=== PATIENT | male | born 1930 | race Caucasian/White ===

== ENCOUNTER 2017-04-09 12:37 | Emergency (ER) | payer MEDICARE, BC ==
[2017-04-09 13:28] LABS: Hematocrit 28.7 % (42.0-52.0); Mean Platelet Volume 11.4 fL (7.4-10.4)
[2017-04-09 13:47] LABS: ALT (SGPT) Less than 7 U/L (8-55); AST (SGOT) 13 U/L (5-34); Alkaline Phosphatase 47 U/L (40-150); Anion Gap 11 mmol/L (10-20); BUN (Urea Nitrogen) 32 mg/dL (8.4-25.7); Bilirubin, Total 0.4 mg/dL (0.2-1.2); CK (CPK) 45 U/L (30-200); Calc. Creatinine Clearance 0 mL/min (70-130); Calcium 9.2 mg/dL (7.8-10.44); Carbon Dioxide 26 mmol/L (23-31); Chloride 104 mmol/L (98-107); Estimated GFR-MDRD 46; Globulin 3.7 g/dL (2.4-3.5); Protein, Total 7.4 g/dL (5.8-8.1)
[2017-04-09 13:50] LABS: PTT 37.2 SEC (22.9-36.1); Prothrombin Time 15.2 SEC (12.0-14.7); Troponin I Less than 0.010 ng/mL (< 0.028)
[2017-04-09 13:59] LABS: Acanthocytes SLIGHT = 1-5 cells (100X) (None Seen); Anisocytosis SLIGHT = 6-15 cells (100X) (0-5/hpf); Hypochromia SLIGHT = 6-15 cells (100X) (0-5/hpf); Neutrophil 67 % (42-75); Reactive Lymphocytes 2 % (0-10)
--- NOTE | 2017-04-09 14:10 | RAD ---
UPRIGHT PORTABLE CHEST ONE VIEW: History: 87-year-old male with chest pain. Comparison: 12-12-16 FINDINGS: Monitor leads overlie the chest. Atherosclerosis of the aorta with some ectasia. Mild increased line ar interstitial markings consistent with some stable chronic lung change. Old lower lumbar spine arturo tebral body collapse. IMPRESSION: Stable chronic changes. Atherosclerosis of the aorta with ectasia. No confluent pneumonia, overt ramirez ma, pleural effusion or other acute process. POS: [facility]
[2017-04-09 17:13] LABS: Bilirubin Negative (Negative); Blood, Urine Negative (Negative); Glucose, Urine (Dipstick) Negative (Negative); Ketone, Urine Negative (Negative); Nitrite Negative (Negative); Protein, Urine (Dipstick) 30 mg/dL (Neg-Trace); Urobilinogen 0.2 mg/dL (0.2-1.0)
[2017-04-09 17:15] LABS: RBC/HPF 0-3 HPF (0-3); Squamous Epithelial 0-3 HPF (0-3); WBC/HPF 0-3 HPF (0-3)
[2017-04-09 17:22] LABS: Bacteria/HPF 1+ HPF (None Seen); Hyaline Casts/LPF 4-6 HYALINE CAST LPF (0-3 Hyaline); Renal Epithelial None Seen HPF (0-3); Transitional Epithelial NONE SEEN HPF (0-3)
== END 2017-04-09 17:52 | disposition home or self-care (01) ==
LOC: ERS 12:37
DX: I48.91 Unspecified atrial fibrillation (principal); D72.829 Elevated white blood cell count, unspecified; G20 Parkinson's disease
CPT/HCPCS: 36415; 71010; 80053; 81003; 81015; 82550; 82553; 83605; 83880; 84484; 85025; 85610; 85730; 87086; 93005; 94760; J7050

== ENCOUNTER 2017-07-27 10:52 | Emergency (ER) | payer MEDICARE, BC ==
[2017-07-27 11:47] LABS: Hemoglobin 8.2 g/dL (14.0-18.0); Mean Corpuscular HGB CONC 30.7 g/dL (32.0-36.0); Mean Corpuscular Hemoglobin 25.5 pg (27.0-31.0); Mean Corpuscular Volume 83.1 fl (80.0-94.0); Mean Platelet Volume 13.3 fL (7.4-10.4); Platelet Count 63 thou/uL (130-400); White Blood Cell (WBC) Count 9.4 thou/uL (4.8-10.8)
--- NOTE | 2017-07-27 11:50 | RAD ---
PORTABLE CHEST: Date: 07/27/17 HISTORY: Heart palpitations. COMPARISON: 04/09/17. FINDINGS: Heart size is borderline. There are atherosclerotic changes of the aorta. Chronic lung changes are se en without focal infiltrates. IMPRESSION: Chronic lung change. Stable chest. POS: [facility]
[2017-07-27 11:58] LABS: ALT (SGPT) Less than 7 U/L (8-55); AST (SGOT) 14 U/L (5-34); Albumin 3.8 g/dL (3.4-4.8); Alkaline Phosphatase 53 U/L (40-150); Anion Gap 11 mmol/L (10-20); BUN (Urea Nitrogen) 18 mg/dL (8.4-25.7); Bilirubin, Total 0.5 mg/dL (0.2-1.2); CK (CPK) 58 U/L (30-200); Calc. Creatinine Clearance 0 mL/min (70-130); Carbon Dioxide 25 mmol/L (23-31); Chloride 104 mmol/L (98-107); Estimated GFR-MDRD 48; Globulin 3.6 g/dL (2.4-3.5); Glucose 141 mg/dL (83-110); Potassium 4.1 mmol/L (3.5-5.1); Protein, Total 7.4 g/dL (5.8-8.1); Sodium 136 mmol/L (136-145)
[2017-07-27 12:03] LABS: CKMB 1.4 ng/mL (0-6.6); Troponin I 0.011 ng/mL (< 0.028)
[2017-07-27 12:14] LABS: Acanthocytes SLIGHT = 1-5 cells (100X) (None Seen); Anisocytosis SLIGHT = 6-15 cells (100X) (0-5/hpf); Hypochromia SLIGHT = 6-15 cells (100X) (0-5/hpf); Lymphocytes 12 % (21-51); MDiff Complete? YES; Monocytes 4 % (0-10); Neutrophil 84 % (42-75); PLT Morphology Comment Appears Decreased
--- NOTE | 2017-08-22 19:55 | EKG ---
Test Reason : Blood Pressure : / mmHG Vent. Rate : 122 BPM Atrial Rate : 113 BPM P-R Int : 000 ms QRS Dur : 088 ms QT Int : 330 ms P-R-T Axes : 000 -26 060 degrees QTc Int : 470 ms Atrial fibrillation with rapid ventricular response Nonspecific ST abnormality Abnormal ECG Confirmed by CALLY PRAJAPATI ([id number]), editor magazine ELAIAN MONTES ([id number]) on 08/22/2017 7:54:45 PM Referred By: Confirmed By:CALLY PRAJAPATI
--- NOTE | 2017-08-22 19:55 | EKG ---
Test Reason : REPEAT EKG Blood Pressure : / mmHG Vent. Rate : 088 BPM Atrial Rate : 088 BPM P-R Int : 174 ms QRS Dur : 094 ms QT Int : 368 ms P-R-T Axes : 058 -22 012 degrees QTc Int : 445 ms Normal sinus rhythm Incomplete right bundle branch block Nonspecific ST abnormality Abnormal ECG Confirmed by CALLY PRAJAPATI ([id number]), manager editorial ELAINA MONTES ([id number]) on 08/22/2017 7:54:45 PM Referred By: MD EASTON Confirmed By:CALLY PRAJAPATI
== END 2017-07-27 12:47 | disposition home or self-care (01) ==
LOC: ERS 10:52
DX: I48.0 Paroxysmal atrial fibrillation (principal); G20 Parkinson's disease; Z79.899 Other long term (current) drug therapy
CPT/HCPCS: 71045; 80053; 82553; 83880; 84484; 85025; 93005

== ENCOUNTER 2017-08-14 07:07 | Emergency (ER) | payer MEDICARE, BC ==
[2017-08-14] MEDS ORDERED: Oxymetazoline HCl 0.05% ( 15 ML ) ONE (07:16)
[2017-08-14 07:40] LABS: Hemoglobin 7.7 g/dL (14.0-18.0); Mean Corpuscular HGB CONC 30.6 g/dL (32.0-36.0); Mean Corpuscular Hemoglobin 25.1 pg (27.0-31.0); Mean Corpuscular Volume 81.9 fl (80.0-94.0); Mean Platelet Volume 10.3 fL (7.4-10.4); Platelet Count 63 thou/uL (130-400); RBC Distribution Width 16.3 % (11.5-14.5); Red Blood Cell (RBC) Count 3.08 mill/uL (4.70-6.10); White Blood Cell (WBC) Count 6.8 thou/uL (4.8-10.8)
[2017-08-14 07:43] LABS: INR-International Normal Ratio 1.2; PTT 37.1 SEC (22.9-36.1); Prothrombin Time 15.3 SEC (12.0-14.7)
[2017-08-14] MEDS ORDERED: Metoprolol Tartrate 5 MG/5 ML VIAL ONE (07:44)
[2017-08-14 08:01] LABS: Acanthocytes SLIGHT = 1-5 cells (100X) (None Seen); Band 4 % (5-11); Burr Cells SLIGHT = 2-5 cells (100X) (0-1/hpf); Eosinophils 2 % (0-10); Hypochromia SLIGHT = 6-15 cells (100X) (0-5/hpf); Lymphocytes 15 % (21-51); MDiff Complete? YES; Metamyelocyte 2 % (0-0); Monocytes 15 % (0-10); Neutrophil 62 % (42-75); PLT Morphology Comment Appears Decreased; Polychromasia SLIGHT = 2-3 cells (100X) (0-2/hpf); Schistocytes SLIGHT = 2-5 cells (100X) (0-1/hpf)
[2017-08-14] MEDS ORDERED: Bacitracin Zinc 1 Packet ONE (08:11)
== END 2017-08-14 10:55 | disposition home or self-care (01) ==
LOC: ERS 07:07
DX: R04.0 Epistaxis (principal); G20 Parkinson's disease; I48.91 Unspecified atrial fibrillation; Z79.82 Long term (current) use of aspirin; Z79.899 Other long term (current) drug therapy
CPT/HCPCS: 30903; 36415; 85025; 85610; 85730; 96374

== ENCOUNTER 2018-07-08 13:48 | Outpatient (CLI) | payer MEDICARE, BC ==
--- NOTE | 2018-07-08 15:05 | ULT ---
RENAL ULTRASOUND: HISTORY: Microhematuria. FINDINGS: Real-time imaging of the right and left kidneys was performed. The right kidney measures 12.3 and th e left 11.3 cm in size. There are no signs of cyst, mass, or obstruction. The bladder has a very irregular trabeculated appearance. The prostate appears enlarged. IMPRESSION: 1. Normal-size kidneys without evidence of obstruction or mass. 2. Very abnormal appearance to the bladder which was very trabeculated and the prostate is markedly enlarged. POS: [facility]
== END 2018-07-08 13:49 | disposition home or self-care (01) ==
LOC: BICULT 13:48
PROVIDERS: ATTEND Urology
DX: R31.29 Other microscopic hematuria (principal); N32.89 Other specified disorders of bladder; N40.0 Benign prostatic hyperplasia without lower urinary tract symptoms
CPT/HCPCS: 76770

== ENCOUNTER 2018-08-16 09:11 | Emergency (ER) | payer MEDICARE, BC ==
--- NOTE | 2018-08-16 10:05 | RAD ---
CHEST ONE VIEW: HISTORY: Chest pain. COMPARISON: Radiograph from 07/27/2017. FINDINGS: The lungs are clear. No pneumothorax or effusion. The cardiac silhouette and mediastinal contours a re similar. Moderate calcifications of the transverse aorta. IMPRESSION: No acute intrathoracic abnormality. POS: [facility]
[2018-08-16 10:09] LABS: ALT (SGPT) 11 U/L (8-55); AST (SGOT) 17 U/L (5-34); Alkaline Phosphatase 43 U/L (40-150); Anion Gap 15 mmol/L (10-20); BUN (Urea Nitrogen) 26 mg/dL (8.4-25.7); Bilirubin, Total 0.9 mg/dL (0.2-1.2); Calc. Creatinine Clearance 0 mL/min (70-130); Calcium 8.9 mg/dL (7.8-10.44); Carbon Dioxide 23 mmol/L (23-31); Chloride 104 mmol/L (98-107); Estimated GFR-MDRD 54; Globulin 3.1 g/dL (2.4-3.5); Glucose 119 mg/dL (83-110); Potassium 4.5 mmol/L (3.5-5.1); Protein, Total 7.1 g/dL (5.8-8.1); Sodium 137 mmol/L (136-145)
[2018-08-16 10:23] LABS: Hemoglobin 11.5 g/dL (14.0-18.0); Lymphocytes 13 % (21-51); MDiff Complete? YES; Mean Corpuscular HGB CONC 33.3 g/dL (32.0-36.0); Mean Corpuscular Volume 96.2 fL (78.0-98.0); Mean Platelet Volume 14.3 fL (7.4-10.4); Monocytes 16 % (0-10); Neutrophil 71 % (42-75); Platelet Count 42 thou/uL (130-400); Platelet Morphology Comment Appears Decreased; Polychromasia SLIGHT = 2-3 cells (100X) (0-2/hpf); RBC Distribution Width 15.6 % (11.5-14.5); White Blood Cell (WBC) Count 8.6 thou/uL (4.8-10.8)
== END 2018-08-16 13:18 ==
LOC: ERS 09:11
DX: R00.2 Palpitations (principal); G20 Parkinson's disease; I48.91 Unspecified atrial fibrillation; Z79.899 Other long term (current) drug therapy; Z79.891 Long term (current) use of opiate analgesic
CPT/HCPCS: 36415; 71045; 80053; 84484; 85025; 93005

== ENCOUNTER 2018-09-28 21:02 | Emergency (ER) | payer MEDICARE, BC | END 2018-09-28 22:36 | disposition home or self-care (01) | LOC: ERS 21:02 | DX: S81.001A Unspecified open wound, right knee, initial encounter (principal); I48.91 Unspecified atrial fibrillation; G20 Parkinson's disease; Z79.899 Other long term (current) drug therapy; Z79.891 Long term (current) use of opiate analgesic; W17.89XA Other fall from one level to another, initial encounter | CPT/HCPCS: 99283 ==

== ENCOUNTER 2018-11-03 10:46 | Inpatient (IN) | payer MEDICARE, BC ==
--- NOTE | 2018-11-03 11:58 | RAD ---
LEFT KNEE 4 VIEWS: HISTORY: Injury, fall. Left knee pain FINDINGS: Degenerative changes are present. No acute fracture or dislocation is identified. No joint effusion i s seen. Vascular calcifications are noted.
--- NOTE | 2018-11-03 12:03 | CT ---
CT BRAIN WITHOUT CONTRAST: HISTORY:Fall. Headache. No loss of consciousness COMPARISON:01/21/2014 FINDINGS: There are foci of decreased attenuation in the periventricular white matter, consistent with chronic small vessel ischemic disease. There are old lacunar infarcts in the cerebellum. No evidence of acute infarct, hemorrhage, midline shift or abnormal extra-axial fluid collections is seen. The ventricular size is appropriate and the basilar cisterns are patent. The bony calvarium is intact. The mastoid air cells are well aerated. There is mucosal disease in the paranasal sinuses. IMPRESSION: No CT evidence of acute intracranial process.
--- NOTE | 2018-11-03 12:11 | CT ---
CT CERVICAL SPINE WITH CORONAL AND SAGITTAL REFORMATIONS AND NO IV CONTRAST: HISTORY: Fall, neck pain FINDINGS: Multilevel degenerative changes are present. There is minimal anterolisthesis of C2 over C3 and C3 ov er C4 vertebral bodies. No fracture, subluxation or facet malalignment is identified. No prevertebral soft tissue swelling is apparent. The visualized lung apices demonstrate scarring. IMPRESSION: No CT evidence for fracture or traumatic subluxation.
[2018-11-03] MEDS ORDERED: Adacel (T-DAP) 0.5 ML SYRINGE ONE (12:24)
--- NOTE | 2018-11-03 12:27 | RAD ---
EXAM: XR Ribs Rt>= 2 View W/PA CXR PROVIDED CLINICAL HISTORY: Witnessed mechanical fall this morning. Patient now complains of right-sided rib pain. COMPARISON: 08/16/2018. FINDINGS: There are remote fractures involving the lateral and anterolateral right eighth through 10th ribs. Fr acture of the right 10th rib was seen on the prior study on 08/16/2018. However,, there are additional acute fractures involving the anterolateral right ninth and 10th ribs . There is suggestio n of subtle subtle nondisplaced fractures involving the posterolateral right seventh, and eighth, as well as ninth ribs. There is an irregular opacity seen extending from the right upper lung zone to the right lung base la terally. This is not seen on the oblique view of the right-sided ribs and is probably related to overlying skin fold. This does not appear to represent a pneumothorax, but follow-up PA chest x-ray i s suggested. Cardiac silhouette and pulmonary vasculature are within normal limits. There is minimal biapical pleural-parenchymal scarring seen. Vascular calcifications are seen in the thoracic aorta. Degenerative changes are noted in the spine with question of height loss involving the T12 vertebral body. However, this be better evaluated with lateral views of the lumbar spine. IMPRESSION: 1. Acute fractures involving the anterolateral right ninth and 10th ribs. 2. Probable subtle nondisplaced fractures of indeterminate age involving the lateral right seventh th rough ninth ribs. 3. Remote fractures involving the lateral right eighth through 10th ribs. 4. Irregular opacity in the right lung which is thought to most likely be related to overlying skin f old, but follow-up PA chest x-ray would be helpful to further evaluate this finding. 5. Question of height loss of the T12 vertebral body. However, this is not well evaluated on AP imagi ng and views of lumbar spine would be helpful for further evaluation.
--- NOTE | 2018-11-03 13:02 | RAD ---
AP pelvis one view HISTORY: Fall. Pelvic injury. FINDINGS: Sacral alae and pelvic rings are intact. Degenerative changes lower lumbar spine and hips. No displaced fractures are apparent. IMPRESSION: No significant abnormalities are demonstrated.
--- NOTE | 2018-11-03 13:06 | RAD ---
RIGHT KNEE FOUR VIEWS: HISTORY: Fall. Right knee pain. FINDINGS: Degenerative changes are seen. No acute fracture or dislocation is identified. There is soft tissue swelling in the prepatellar space. POS: [facility]
--- NOTE | 2018-11-03 13:50 | CT ---
CT CHEST WITHOUT CONTRAST: HISTORY: fall, right-sided chest pain, rib pain FINDINGS: Comparison is made with exam of 12/12/2016 There are multiple right-sided rib fractures involving the fifth through ninth ribs. An associated sm all right pleural effusion is present. Adjacent atelectatic changes noted. No pneumothoraces are seen. There are old compression fractures in the thoracic spine. Vascular calcification is present without evidence of an is no dilatation of the thoracic aorta. A tiny pericardial effusion is noted. No left-sided pleural effusion is seen. IMPRESSION: Multiple right-sided rib fractures with small right pleural effusion.
--- NOTE | 2018-11-03 14:19 | CT ---
EXAM: CT Thoracic Spine WO Con PROVIDED CLINICAL HISTORY: Back pain. Unwitnessed mechanical fall this morning. Right-sided rib pain. COMPARISON: CT lumbar spine on 08/01/[address] thorax on 12/12/2016. FINDINGS: The severe burst fracture of the T12 vertebral body is again seen. Burst fracture of the T11 vertebra l body is also again seen. Degree of height loss is unchanged compared to the coronal reformatted images on CT thorax in 2017, and the degree height loss anteriorly is greater than 75% involving thes e vertebral bodies with exaggerated kyphosis of the thoracic spine centered at these levels. There is moderate narrowing of the central spinal canal at the T11-12 level due to retropulsion of fracture fragments greatest involving the superior endplate of the T12 vertebral body. The degree of neural central canal narrowing is stable compared to study in 2014. No new compression fracture is seen involving the thoracic spine. Remainder of the thoracic spine dem onstrates no significant bony encroachment on the central spinal canal. There is moderate bilateral neural foraminal narrowing at the T9-T10 and T11-12 levels secondary to facet degenerative changes an d bony encroachment. No significant neural foraminal narrowing is seen at the remaining levels of the thoracic spine. There is no evidence of a subluxation. Prevertebral soft tissues have a normal appearance. There is a right pleural effusion which does demonstrate mild increased density, some of this is like ly related to artifact. However, findings are likely due to hemothorax given right-sided rib fractures seen on recent chest x-ray as well as CT of the thorax. Vascular calcifications are seen in the coronary arteries as well as involving the thoracic aorta. The left renal pelvis is prominent with suggestion of mild caliectasis/minimal hydronephrosis. This i s incompletely evaluated on this exam; however, a similar finding was seen on CT thorax in 2017. A calcified nodule is present in the right lobe of the thyroid also seen on study in 2017. Pleural and parenchymal scarring is seen in each lung apex with calcification on the right. IMPRESSION: 1. Burst fractures T11 and T12 vertebral bodies. Degree of height loss of these vertebral bodies is o verall similar to CT thorax on 12/12/2016 with greater than 75% loss of height anteriorly and resultant exaggerated kyphosis of the thoracolumbar spine at this level. There is moderate narrowing of the central spinal canal due to retropulsion of fracture fragments into the central canal. 2. Right pleural effusion with increased density suggesting hemothorax.
[2018-11-03] MEDS ORDERED: HYDROcodone/Acetaminophen 5/325 mg Tablet ONE (15:34)
[2018-11-03 16:35] LABS: Bilirubin Negative (Negative); Blood, Urine Large (Negative); Clarity CLOUDY (Clear); Glucose, Urine (Dipstick) Negative (Negative); Leukocyte Negative (Negative); Nitrite Negative (Negative); Protein, Urine (Dipstick) 30 mg/dL (Neg-Trace); Specific Gravity, Urine 1.013 (1.002-1.036)
[2018-11-03 16:38] LABS: Bacteria/HPF None Seen HPF (None Seen); Hyaline Casts/LPF 0-3 HYALINE CAST LPF (0-3 Hyaline); Pathc Cast-AUWi Flag 0.27 (0-2.49); RBC/HPF GREATER THAN 50-TNTC HPF (0-3); Squamous Epithelial 0-3 HPF (0-3); WBC/HPF 0-3 HPF (0-3)
--- NOTE | 2018-11-03 17:20 | RAD ---
3 views right foot. HISTORY: Fall with right foot pain. AP, lateral and oblique views right foot obtained. Vascular calcifications seen in the right foot. No evidence of acute fractures, subluxations or bony lesions seen. IMPRESSION: normal 3 views right foot.
[2018-11-03] MEDS ORDERED: Sodium Chloride 0.9% 1,000 ML IV SCH (17:44)
[2018-11-03] MEDS ORDERED: Ondansetron ODT 4 MG TAB SL PRN (17:44)
[2018-11-03] MEDS ORDERED: Ondansetron PF 4 MG/2 ML Vial IVP PRN (17:44)
[2018-11-03] MEDS ORDERED: Acetaminophen 325 MG TAB PO PRN (17:44)
[2018-11-03] MEDS ORDERED: HYDROcodone/Acetaminophen 5/325 mg Tablet PO PRN ×3 (17:44→22:17)
[2018-11-03 18:54] LABS: Hemoglobin 7.9 g/dL (14.0-18.0); Mean Corpuscular HGB CONC 34.3 g/dL (32.0-36.0); Mean Corpuscular Hemoglobin 33.1 pg (27.0-31.0); Mean Corpuscular Volume 96.5 fL (78.0-98.0); RBC Distribution Width 17.4 % (11.5-14.5); Red Blood Cell (RBC) Count 2.38 mill/uL (4.70-6.10); White Blood Cell (WBC) Count 10.8 thou/uL (4.8-10.8)
[2018-11-03 18:56] LABS: Albumin 3.4 g/dL (3.4-4.8)
[2018-11-03 18:57] LABS: Chloride 101 mmol/L (98-107); Potassium 4.3 mmol/L (3.5-5.1); Sodium 135 mmol/L (136-145)
[2018-11-03 18:58] LABS: Calcium 8.4 mg/dL (7.8-10.44); Glucose 121 mg/dL (83-110)
[2018-11-03 18:59] LABS: Globulin 2.5 g/dL (2.4-3.5); Protein, Total 5.9 g/dL (5.8-8.1)
[2018-11-03 19:00] LABS: Anion Gap 11 mmol/L (10-20); Bilirubin, Total 1.3 mg/dL (0.2-1.2); Carbon Dioxide 27 mmol/L (23-31)
[2018-11-03 19:01] LABS: Alkaline Phosphatase 53 U/L (40-150)
[2018-11-03 19:02] LABS: Calc. Creatinine Clearance 29 mL/min (70-130); Estimated GFR-MDRD 45
[2018-11-03 19:03] LABS: BUN (Urea Nitrogen) 24 mg/dL (8.4-25.7)
[2018-11-03 19:04] LABS: ALT (SGPT) Less than 7 U/L (8-55); AST (SGOT) 17 U/L (5-34)
[2018-11-03 19:11] LABS: Anisocytosis SLIGHT = 6-15 cells (100X) (0-5/hpf); Band 1 % (5-11); Basophilic Stippling SLIGHT = 1-2 cells (100X) (None Seen); Elliptocytes SLIGHT = 2-5 cells (100X) (0-1/hpf); Large Platelets SLIGHT; Lymphocytes 16 % (21-51); MDiff Complete? YES; Mean Platelet Volume 12.6 fL (7.4-10.4); Monocytes 17 % (0-10); Neutrophil 65 % (42-75); Nucleated RBC 1 % (0); Ovalocytes SLIGHT = 2-5 cells (100X) (0-1/hpf); Platelet Count 36 thou/uL (130-400); Platelet Morphology Comment Appears Decreased; Polychromasia MODERATE = 3-4 cells (100X) (0-2/hpf); Schistocytes SLIGHT = 2-5 cells (100X) (0-1/hpf)
[2018-11-03] MEDS ORDERED: Senokot S 8.6-50 MG TAB PO PRN (22:17)
[2018-11-03] MEDS ORDERED: Polyethylene Glycol 3350 17 GM Packet PO PRN (22:24)
[2018-11-03 23:11] LABS: Hemoglobin 7.7 g/dL (14.0-18.0)
[2018-11-03 23:17] LABS: INR-International Normal Ratio 1.3; Prothrombin Time 16.3 SEC (12.0-14.7)
[2018-11-03 23:18] LABS: PTT 38.4 SEC (22.9-36.1)
[2018-11-03] MEDS: Acetaminophen 325 MG TAB PO PRN (23:42)
--- NOTE | 2018-11-04 05:33 | HP ---
PRIMARY CARE PHYSICIAN: Dr. Ace. CHIEF COMPLAINT: Right rib pain. HISTORY OF PRESENT ILLNESS: Mr. Duenas is an 88-year-old male, who reported to the emergency room today for evaluation of right rib pain. The patient and family report the patient has had frequent falls in the last several days, has a history of Parkinson disease, also has a past medical history pertinent for urinary retention, anemia, atrial fibrillation, vertebral fracture. Reports that he fell earlier in the week in the bathroom. Daughter reports that he fell today and hit his ribs on a curb. He has multiple contusions, abrasions, and ecchymoses all over his body, right knee and right ankle with swelling and ecchymosis. Also, has tenderness to right anterior chest wall. Has some skin tears on the right arm and multiple contusions on the right side of his body. The patient had multiple CTs and x-rays. 1. Brain CT, which showed no CT evidence of any acute intracranial process. 2. The patient also had a cervical spinal CT, no CT evidence of fracture or traumatic subluxation. 3. The patient also had a thoracic spine CT, which shows burst fractures at T11 and T12 vertebral bodies, degree of height loss of these bodies are overall similar to the CT thorax of 12/12/2016 with greater than 75% loss of height. Moderate narrowing of the central spinal canal due to retropulsion of the fracture fragments into the central canal. Right pleural effusion with increased density suggesting a hemothorax. 4. The patient had a chest CT, which showed multiple right-sided rib fractures with small right pleural effusion. Tiny pericardial effusion is noted. 5. The patient had a right foot x-ray, which showed normal right foot views. 6. The patient also had a pelvis x-ray, which showed no significant abnormalities. 7. Chest x-ray with rib view shows acute fractures involving the anterior lateral right 9th and 10th ribs, probable subtle nondisplaced fractures of indeterminate-age over the right 7th through the 9th ribs. Remote fractures involving the lateral right 8th through the 10th. Irregular opacity in the right lung. 8. Bilateral knee x-rays were also performed, which showed no evidence of fracture. There is an effusion on the right knee. The patient was admitted to medical for pain control, PT/OT evaluation, possible rehab and/or home health with PT to help with frequent falls. Case management consultation will also be ordered. REVIEW OF SYSTEMS: The patient with pain with a deep breath to the right chest, tender to the touch to the right anterior chest wall, skin tears of right arm, multiple contusions, pain to right ankle. All other systems were reviewed and negative unless mentioned in the HPI. PAST MEDICAL HISTORY: Pertinent for urinary retention, iron-deficiency anemia, Parkinson's, atrial fibrillation, and vertebrae fracture. SURGICAL HISTORY: Aneurysm repair of right carotid artery. PSYCHIATRIC HISTORY: None. SOCIAL HISTORY: Lives in long-term care facility, [facility]. Drinks socially. No smoking history. KNOWN ALLERGIES: None. HOME MEDICATIONS: 1. Metoprolol 25 mg p.o. b.i.d. 2. Potassium chloride 10 mEq once a day. 3. Tylenol No.3 of 300 mg/30 mg one tablet t.i.d. p.r.n. 4. Ferrous sulfate 134 mg daily. 5. Finasteride 5 mg p.o. daily. 6. Citalopram 10 mg p.o. once daily. 7. Carbidopa-levodopa 25-250 t.i.d. 8. Amantadine 100 mg p.o. b.i.d. 9. Docusate 100 mg p.o. once a day at bedtime. 10. MiraLax 17 g p.o. p.r.n. 11. Myrbetriq 25 mg once a day. 12. Flomax 0.4 mg p.o. b.i.d. PHYSICAL EXAMINATION: VITAL SIGNS: Blood pressure 170/75, pulse is 64, respirations 18, pO2 sats 93% on room air, temperature is 98.7. CONSTITUTIONAL: The patient appears nontoxic, is currently comfortable, is alert and oriented to person, place, and time. HEENT: Head is atraumatic and normocephalic. Eyes; eyelids are normal to inspection. Extraocular muscles are intact. Pupils are equally round and reactive to light. ENT; mouth exam is normal. Mucous membranes are moist. NECK: Normal range of motion. Trachea is midline. RESPIRATORY/CHEST: Breath sounds are normal. There is tenderness to the right anterior chest. CARDIOVASCULAR: Heart rate regular rate and rhythm. Heart sounds are normal. ABDOMEN: Nontender. Bowel sounds are heard. BACK: Normal inspection, normal range of motion. Upper extremity, normal range of motion. Motor strength is normal. Radial pulses are normal. Lower extremity, normal range of motion. Motor strength is normal. Sensation is intact. Pedal pulses are normal. NEUROLOGIC: The patient is oriented to person, place, and time. SKIN: Warm and dry. Skin avulsions to right arm. Multiple areas of contusions to right side of body. Ecchymosis is noted right leg, right arm, and right side of chest. ASSESSMENT AND PLAN: 1. Right rib fractures: Pain medication, observation, OT/PT evaluation, Case Management for home health, rehab, PT/OT assistants as needed. 2. Anemia: The patient does have a history of hematuria. With a history of anemia, we will perform H and H q.6, we will monitor. The patient has multiple ecchymoses, bruising, contusions from recent falls. We have ordered a guaiac to make sure that the patient does not have any gastrointestinal source. We will keep a close eye on the hemoglobin. The patient is not on any blood thinners. 3. Parkinson's: We will continue home medications. 4. Hypertension: We will continue home medications. 5. Benign prostatic hyperplasia, urinary retention: We will continue home medications. 6. Case discussed with Dr. Pacheco, who agrees with plan. 7. Gastrointestinal prophylaxis has been started. Due to the multiple bruising, right leg bruising, ankle pain, and anemia, we will hold off any Lovenox. SCDs for now. Re-evaluate in the morning and start as appropriate. 8. Hospital course will be dependent on clinical findings. Job ID: [id number]
[2018-11-04 05:48] LABS: Platelet Count 18 thou/uL (130-400)
[2018-11-04 06:07] LABS: Hemoglobin 7.8 g/dL (14.0-18.0); Hypochromia SLIGHT = 6-15 cells (100X) (0-5/hpf); Lymphocytes 20 % (21-51); MDiff Complete? YES; Mean Corpuscular HGB CONC 34.5 g/dL (32.0-36.0); Mean Corpuscular Hemoglobin 33.1 pg (27.0-31.0); Mean Platelet Volume 13.2 fL (7.4-10.4); Monocytes 14 % (0-10); Neutrophil 66 % (42-75); Platelet Morphology Comment Appears Decreased; RBC Distribution Width 17.4 % (11.5-14.5); Red Blood Cell (RBC) Count 2.36 mill/uL (4.70-6.10); White Blood Cell (WBC) Count 9.6 thou/uL (4.8-10.8)
[2018-11-04 06:12] LABS: ALT (SGPT) 8 U/L (8-55); AST (SGOT) 14 U/L (5-34); Albumin 3.3 g/dL (3.4-4.8); Alkaline Phosphatase 51 U/L (40-150); Anion Gap 11 mmol/L (10-20); BUN (Urea Nitrogen) 19 mg/dL (8.4-25.7); Bilirubin, Total 1.5 mg/dL (0.2-1.2); Calc. Creatinine Clearance 36 mL/min (70-130); Calcium 8.4 mg/dL (7.8-10.44); Carbon Dioxide 24 mmol/L (23-31); Chloride 102 mmol/L (98-107); Estimated GFR-MDRD 57; Globulin 2.6 g/dL (2.4-3.5); Glucose 102 mg/dL (83-110); Protein, Total 5.9 g/dL (5.8-8.1); Sodium 133 mmol/L (136-145)
[2018-11-04] MEDS: Finasteride 5 MG TAB PO SCH (10:45)
[2018-11-04] MEDS: Amantadine HCl 100 mg Capsule PO SCH ×2 (10:45→20:31)
[2018-11-04] MEDS: Tamsulosin HCl 0.4 MG CAP PO SCH ×2 (10:46→20:30)
[2018-11-04] MEDS: Famotidine 20 MG TAB PO SCH (10:46)
[2018-11-04] MEDS: Metoprolol Tartrate 25 MG TAB PO SCH ×2 (10:46→20:30)
[2018-11-04] MEDS: Ferrous Sulfate 325 MG TAB PO SCH (10:46)
[2018-11-04] MEDS: Carbidopa/Levodopa 25-100 mg Tablet PO SCH ×3 (10:47→20:31)
[2018-11-04] MEDS: Citalopram 20 MG TAB PO SCH (10:47)
--- NOTE | 2018-11-04 13:08 | CT ---
CT BRAIN WITHOUT CONTRAST: HISTORY:Fall. Altered mental status, focal weakness right hand COMPARISON:01/21/2014, 11/03/2018 FINDINGS: There are foci of decreased attenuation in the periventricular white matter, consistent wit h chronic small vessel ischemic disease. There are old lacunar infarcts in the cerebellum. No evidence of acute infarct, hemorrhage, midline shift or abnormal extra-axial fluid collections is see n. The ventricular size is appropriate and the basilar cisterns are patent. The bony calvarium is intact. The mastoid air cells are well aerated. There is mucosal disease in the paranasal sinuses. IMPRESSION: No CT evidence of acute intracranial process.
[2018-11-04 13:15] LABS: Hemoglobin 7.9 g/dL (14.0-18.0); Mean Corpuscular HGB CONC 34.2 g/dL (32.0-36.0); Mean Corpuscular Volume 96.5 fL (78.0-98.0); Mean Platelet Volume 12.8 fL (7.4-10.4); Platelet Count 39 thou/uL (130-400); RBC Distribution Width 17.2 % (11.5-14.5); Red Blood Cell (RBC) Count 2.41 mill/uL (4.70-6.10)
[2018-11-04 13:30] LABS: Anisocytosis SLIGHT = 6-15 cells (100X) (0-5/hpf); Band 2 % (5-11); Elliptocytes SLIGHT = 2-5 cells (100X) (0-1/hpf); Eosinophils 2 % (0-10); Lymphocytes 8 % (21-51); MDiff Complete? YES; Monocytes 11 % (0-10); Neutrophil 77 % (42-75); Platelet Morphology Comment Appears Decreased
[2018-11-04] MEDS: HYDROcodone/Acetaminophen 5/325 mg Tablet PO PRN (14:39)
[2018-11-04] MEDS: ALPRAZolam 0.25 MG TAB PO PRN (15:50)
[2018-11-04] MEDS ORDERED: Sodium Chloride 0.9% 500 ML IV SCH (16:45)
--- NOTE | 2018-11-04 19:21 | PRG ---
DATE OF SERVICE: 11/04/2018 SUBJECTIVE: Mr. Duenas is a pleasant elderly gentleman with past medical history significant for myeloproliferative disorder and chronic thrombocytopenia, and end-stage Parkinson disease, who presented to the hospital after suffering from a fall. The patient has been admitted with multiple rib fractures and small hemothorax. This morning, the patient did have some intermittent weakness on his right side, along with some hallucinations involving some perceptions of trying to eat food that was not there and thinking he was in a standing position when he was actually lying down. He denies any pain. He is pleasant and conversative and has been oriented x3. He denies any nausea, vomiting, or shortness of breath. OBJECTIVE: VITAL SIGNS: Blood pressure 90/45, pulse 69, respirations 16, O2 saturation is 100%, temperature is 97.5. GENERAL: This is a very thin, generally ill-appearing male in bed, in no acute distress. HEENT: Head is atraumatic and normocephalic. CV: S1 and S2. Regular rate and rhythm. Systolic murmur grade 2/6. LUNGS: Regular respiratory rate and pattern, overall clear. Mildly decreased breath sounds at the bases. ABDOMEN: Soft. Positive bowel sounds. EXTREMITIES: No edema. MUSCULOSKELETAL: He does have abrasions down the right side of his arm, which are wrapped. LABORATORY DATA: White blood cell count 11, hemoglobin 7.9, hematocrit 23.2, platelet count is 39. Sodium 133, creatinine 1.21. Urinalysis was positive for blood. ASSESSMENT: 1. Status post fall with resulting rib fractures and pleural effusion, likely traumatic/hemothorax. 2. End-stage Parkinson disease with hallucinations and possible acute delirium. 3. Myeloproliferative disorder and chronic thrombocytopenia. 4. Hematuria, resolving. PLAN: Repeat CT scan was obtained, which showed no acute bleed at this time. A long conversation was had with his daughter, Sara, the patient is a DNAR, and they would like a palliative care consult at this time. The patient did become hypotensive late in the afternoon, a saline bolus was ordered, however, the patient's daughter refused repeat IV stick for the patient. It is likely after palliative care consult that they will choose comfort care and comfort measures at this time. Case Management has been consulted for placement at an inpatient rehab and this is ongoing. The patient has multiple comorbidities and given his thrombocytopenia and injury meets inpatient criteria at this time, the care of this patient was discussed with Dr. Barrientos in detail, who agrees with plan of care as stated above. Job ID: [id number]
[2018-11-04] MEDS: Acetaminophen 325 MG TAB PO PRN (19:31)
[2018-11-04] MEDS: Docusate 100 MG CAP PO SCH (20:30)
[2018-11-05] MEDS: ALPRAZolam 0.25 MG TAB PO PRN ×3 (06:00→19:59)
[2018-11-05] MEDS: Acetaminophen 325 MG TAB PO PRN ×3 (06:00→16:22)
[2018-11-05] MEDS: Carbidopa/Levodopa 25-100 mg Tablet PO SCH ×4 (09:54→19:58)
[2018-11-05] MEDS: Famotidine 20 MG TAB PO SCH (09:55)
[2018-11-05] MEDS: Citalopram 20 MG TAB PO SCH ×2 (09:55→10:38)
[2018-11-05] MEDS: Metoprolol Tartrate 25 MG TAB PO SCH ×2 (10:01→19:58)
[2018-11-05] MEDS: Finasteride 5 MG TAB PO SCH ×2 (10:02→10:39)
[2018-11-05] MEDS: Tamsulosin HCl 0.4 MG CAP PO SCH ×2 (10:02→19:59)
[2018-11-05] MEDS: Potassium Chloride 10 MEQ TAB PO SCH (10:03)
[2018-11-05] MEDS: Amantadine HCl 100 mg Capsule PO SCH ×3 (10:04→19:57)
[2018-11-05] MEDS: Ferrous Sulfate 325 MG TAB PO SCH (10:38)
--- NOTE | 2018-11-05 13:43 | PDOC.PALPN ---
Palliative Progress Note - Subjective Arrived to assess patient and follow up on consult request. Patient sleeping, nurse present stating that family had just left for lunch. Visit in conjunction with palliative care nurse Kermit Wilks RN. Patient with significant brusing/skin tears from recent fall. Not arousable other than moan. Patient Head of bed elevated and patient listing to left. Bronchial secretions audible at bedside. Staff nurse reports patient took medications in pudding today without difficulty. Family seeking palliation and comfort measures secondary to patient continued decline related to chronic health conditions. - Objective Vital Signs: Vital Signs - Most Recent Temp Pulse Resp BP Pulse Ox 98.0 F 72 12 118/64 98 11/05/18 11:55 11/05/18 10:40 11/05/18 10:40 11/05/18 10:40 11/05/18 10:40 - Physical Exam Deviation from normal: Patient not arousable other than moaning. Clavicular wasting Deviation from normal: Lungs clear upper lobes, diminished lower, bronchial secresions, Cardiovascular: RRR Deviation from normal: murmur Deviation from normal: unable to determine orientation Deviation from normal: Brusing significant, skin tears, pallor - Assessment (1) Oropharyngeal dysphagia Code(s): R13.12 - DYSPHAGIA, OROPHARYNGEAL PHASE Current Visit: No Status: Acute (2) Parkinson disease Code(s): G20 - PARKINSON'S DISEASE Current Visit: No Status: Chronic - Plan Plan:Palliative Care Team to follow up with family. Kermit Wilks to determine if speech therapy has been consulted for eval related to dysphagia. [20] minutes spent on this encounter with >50% of the time in counseling and coordination of care.
--- NOTE | 2018-11-05 13:49 | PDOC.PN ---
- Subjective Encounter Start Date: 11/05/18 Encounter Start Time: 11:15 Subjective: is resting now, had a rough night per son and daughter at bedside - Objective Resuscitation Status - Order Detail: 11/03/18 22:17 Resuscitation Status Routine Co-Sign Provider: Resuscitation Status: DNAR: NO Resuscitation Discussed with: patient Additional comments: daughter is surrogate decision maker MAR Reviewed: Yes Vital Signs & Weight: Vital Signs (12 hours) Temp Pulse Resp BP Pulse Ox 11/05/18 11:55 98.0 F 11/05/18 10:40 72 12 118/64 98 11/05/18 10:38 94 L Weight Admit Weight 130 lb 1.164 oz Weight 130 lb 1.164 oz I&O: 11/04/18 11/05/18 11/06/18 06:59 06:59 06:59 Intake Total 1000 0 Output Total 450 Balance 550 0 Result Diagrams: 11/04/18 12:54 11/04/18 05:02 Phys Exam - Physical Examination multiple echymosis all over HEENT: PERRLA, moist MMs Neck: no JVD, supple Respiratory: no wheezing, no rales Cardiovascular: RRR, no significant murmur Gastrointestinal: soft, non-tender, positive bowel sounds Musculoskeletal: pulses present right knee effusion Neurological: non-focal, moves all 4 limbs Dx/Plan - Plan h/o fall: multiple bruising/echymosis, fracture of right 5-9 ribs -: 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 for help with Parkinson meds, he had amantadine added to levodopa a week back, ?end stage parkinson Above to help family make decisions towards Hospice, pt also has MDS with pancytopenia, frail elderly. Review of Systems - Medications/Allergies Allergies/Adverse Reactions: Allergies Allergy/AdvReac Type Severity Reaction Status Date / Time No Known Allergies Allergy Verified 07/19/13 11:26 Medications: Current Medications Acetaminophen (Tylenol) 650 mg PO Q4H PRN PRN Reason: Headache/Fever/Mild Pain (1-3) Last Admin: 11/05/18 10:39 Dose: 650 mg Hydrocodone Bitart/Acetaminophen ([place] 5/325) 1 tab PO Q4H PRN PRN Reason: Moderate Pain (4-6) Last Admin: 11/04/18 14:39 Dose: 1 tab Hydrocodone Bitart/Acetaminophen ([place] 5/325) 2 tab PO Q4H PRN PRN Reason: Severe Pain (7-10) Alprazolam (Xanax) 0.25 mg PO TIDPRN PRN PRN Reason: Anxiety Last Admin: 11/05/18 10:40 Dose: 0.25 mg Amantadine HCl (Symmetrel) 100 mg PO BID [facility] Last Admin: 11/05/18 10:39 Dose: 100 mg Carbidopa/Levodopa (Sinemet 25-100) 1 tab PO TID [facility] Last Admin: 11/05/18 10:38 Dose: 1 tab Citalopram Hydrobromide (Celexa) 20 mg PO DAILY [facility] Last Admin: 11/05/18 10:38 Dose: 20 mg Docusate Sodium (Colace) 100 mg PO QPM [facility] Last Admin: 11/04/18 20:30 Dose: Not Given Famotidine (Pepcid) 20 mg PO 0900 [facility] Last Admin: 11/05/18 09:55 Dose: Not Given Ferrous Sulfate (Feosol) 325 mg PO QA-[facility] Last Admin: 11/05/18 10:38 Dose: Not Given Finasteride (Proscar) 5 mg PO DAILY [facility] Last Admin: 11/05/18 10:39 Dose: 5 mg Metoprolol Tartrate (Lopressor) 25 mg PO BID [facility] Last Admin: 11/05/18 10:01 Dose: Not Given Mirabegron (Myrbetriq Er) 25 mg PO DAILY [facility] Last Admin: 11/05/18 10:03 Dose: Not Given Polyethylene Glycol (Miralax) 17 gm PO DAILY PRN PRN Reason: Constipation Potassium Chloride (Klor-Con 10) 10 meq PO MoWeFr@0900 [facility] Last Admin: 11/05/18 10:03 Dose: Not Given Senna/Docusate Sodium (Senokot S) 2 tab PO BID PRN PRN Reason: Constipation Tamsulosin HCl (Flomax) 0.4 mg PO BID [facility] Last Admin: 11/05/18 10:02 Dose: Not Given
[2018-11-05] MEDS: Docusate 100 MG CAP PO SCH (19:58)
[2018-11-05] MEDS: HYDROcodone/Acetaminophen 5/325 mg Tablet PO PRN (20:01)
[2018-11-06] MEDS: Amantadine HCl 100 mg Capsule PO SCH ×2 (07:52→21:01)
[2018-11-06] MEDS: Metoprolol Tartrate 25 MG TAB PO SCH ×2 (07:53→21:00)
[2018-11-06] MEDS: Tamsulosin HCl 0.4 MG CAP PO SCH ×2 (07:53→21:01)
[2018-11-06] MEDS: Citalopram 20 MG TAB PO SCH (07:53)
[2018-11-06] MEDS: Ferrous Sulfate 325 MG TAB PO SCH (07:53)
[2018-11-06] MEDS: Finasteride 5 MG TAB PO SCH (07:54)
[2018-11-06] MEDS: Carbidopa/Levodopa 25-100 mg Tablet PO SCH ×3 (07:54→21:01)
[2018-11-06] MEDS: Famotidine 20 MG TAB PO SCH (07:55)
--- NOTE | 2018-11-06 13:05 | PDOC.PN ---
- Subjective Encounter Start Date: 11/06/18 Encounter Start Time: 08:40 Subjective: more awake and interacting this am -: responds well to verbal questions - Objective Resuscitation Status - Order Detail: 11/03/18 22:17 Resuscitation Status Routine Co-Sign Provider: Resuscitation Status: DNAR: NO Resuscitation Discussed with: patient Additional comments: daughter is surrogate decision maker MAR Reviewed: Yes Vital Signs & Weight: Vital Signs (12 hours) Temp Pulse Resp BP Pulse Ox 11/06/18 11:36 97.5 F L 72 17 116/67 90 L 11/06/18 08:02 77 92 L 11/06/18 07:36 97.8 F 83 19 94/52 L 90 L 11/06/18 04:40 97.9 F 111 H 16 106/69 93 L Weight Admit Weight 130 lb 1.164 oz Weight 130 lb 1.164 oz I&O: 11/05/18 11/06/18 11/07/18 06:59 06:59 06:59 Intake Total 0 50 Balance 0 50 Result Diagrams: 11/04/18 12:54 11/04/18 05:02 Phys Exam - Physical Examination multiple echymosis HEENT: PERRLA, moist MMs Neck: no JVD, supple Respiratory: no wheezing, no rales Cardiovascular: RRR, no significant murmur Gastrointestinal: soft, non-tender, positive bowel sounds Musculoskeletal: pulses present Dx/Plan (1) H/O fall Code(s): Z91.81 - HISTORY OF FALLING Status: Acute (2) Rib fractures Code(s): S22.39XA - FRACTURE OF ONE RIB, UNSP SIDE, INIT FOR CLOS FX Status: Acute Qualifiers: Encounter type: subsequent encounter Rib fracture type: multiple ribs Fracture type: closed Laterality: right Comment: right -9 (3) MDS (myelodysplastic syndrome) Code(s): D46.9 - MYELODYSPLASTIC SYNDROME, UNSPECIFIED Status: Chronic Comment: with pancytopenia (4) Physical deconditioning Code(s): R53.81 - OTHER MALAISE Status: Acute (5) Encephalopathy acute Code(s): G93.40 - ENCEPHALOPATHY, UNSPECIFIED Status: Acute (6) Osteoporosis Code(s): M81.0 - AGE-RELATED OSTEOPOROSIS W/O CURRENT PATHOLOGICAL FRACTURE Status: Chronic Qualifiers: Osteoporosis type: unspecified (7) Parkinson disease Code(s): G20 - PARKINSON'S DISEASE Status: Chronic - Plan he ate his breakfast himself per family at bedside -: is on sinemet and amantadine -: continue lopressor, proscar, iron, citalopram, flomax -: will add lidocaine tts -: PT to mobilize as tolerated * . Review of Systems - Medications/Allergies Allergies/Adverse Reactions: Allergies Allergy/AdvReac Type Severity Reaction Status Date / Time No Known Allergies Allergy Verified 07/19/13 11:26 Medications: Current Medications Acetaminophen (Tylenol) 650 mg PO Q4H PRN PRN Reason: Headache/Fever/Mild Pain (1-3) Last Admin: 11/05/18 16:22 Dose: 650 mg Hydrocodone Bitart/Acetaminophen ([place] 5/325) 1 tab PO Q4H PRN PRN Reason: Moderate Pain (4-6) Last Admin: 11/05/18 20:01 Dose: 1 tab Hydrocodone Bitart/Acetaminophen ([place] 5/325) 2 tab PO Q4H PRN PRN Reason: Severe Pain (7-10) Alprazolam (Xanax) 0.25 mg PO TIDPRN PRN PRN Reason: Anxiety Last Admin: 11/05/18 19:59 Dose: 0.25 mg Amantadine HCl (Symmetrel) 100 mg PO BID [facility] Last Admin: 11/06/18 07:52 Dose: 100 mg Carbidopa/Levodopa (Sinemet 25-100) 1 tab PO TID [facility] Last Admin: 11/06/18 07:54 Dose: 1 tab Citalopram Hydrobromide (Celexa) 20 mg PO DAILY [facility] Last Admin: 11/06/18 07:53 Dose: 20 mg Docusate Sodium (Colace) 100 mg PO QPM [facility] Last Admin: 11/05/18 19:58 Dose: Not Given Famotidine (Pepcid) 20 mg PO 0900 [facility] Last Admin: 11/06/18 07:55 Dose: Not Given Ferrous Sulfate (Feosol) 325 mg PO QA-[facility] Last Admin: 11/06/18 07:53 Dose: 325 mg Finasteride (Proscar) 5 mg PO DAILY [facility] Last Admin: 11/06/18 07:54 Dose: 5 mg Metoprolol Tartrate (Lopressor) 25 mg PO BID [facility] Last Admin: 11/06/18 07:53 Dose: Not Given Mirabegron (Myrbetriq Er) 25 mg PO DAILY [facility] Last Admin: 11/06/18 07:54 Dose: 25 mg Polyethylene Glycol (Miralax) 17 gm PO DAILY PRN PRN Reason: Constipation Potassium Chloride (Klor-Con 10) 10 meq PO MoWeFr@0900 [facility] Last Admin: 11/05/18 10:03 Dose: Not Given Senna/Docusate Sodium (Senokot S) 2 tab PO BID PRN PRN Reason: Constipation Tamsulosin HCl (Flomax) 0.4 mg PO BID [facility] Last Admin: 11/06/18 07:53 Dose: 0.4 mg
[2018-11-06] MEDS: Lidocaine Patch Removal 1 EACH TOP SCH (21:00)
[2018-11-06] MEDS: Docusate 100 MG CAP PO SCH (21:01)
[2018-11-06] MEDS: HYDROcodone/Acetaminophen 5/325 mg Tablet PO PRN (21:02)
[2018-11-06] MEDS: ALPRAZolam 0.25 MG TAB PO PRN (21:02)
[2018-11-07] MEDS: HYDROcodone/Acetaminophen 5/325 mg Tablet PO PRN (05:05)
[2018-11-07] MEDS: ALPRAZolam 0.25 MG TAB PO PRN ×2 (05:05→15:19)
[2018-11-07] MEDS: Citalopram 20 MG TAB PO SCH (08:43)
[2018-11-07] MEDS: Tamsulosin HCl 0.4 MG CAP PO SCH ×2 (08:43→21:38)
[2018-11-07] MEDS: Ferrous Sulfate 325 MG TAB PO SCH (08:43)
[2018-11-07] MEDS: Carbidopa/Levodopa 25-100 mg Tablet PO SCH ×3 (08:44→21:38)
[2018-11-07] MEDS: Amantadine HCl 100 mg Capsule PO SCH ×2 (08:44→21:38)
[2018-11-07] MEDS: Famotidine 20 MG TAB PO SCH (08:45)
[2018-11-07] MEDS: Finasteride 5 MG TAB PO SCH (08:45)
[2018-11-07] MEDS: Metoprolol Tartrate 25 MG TAB PO SCH ×2 (08:46→21:36)
[2018-11-07] MEDS ORDERED: Lorazepam 2 MG/ML VIAL IM SCH (09:30)
[2018-11-07] MEDS: Lidocaine 5% Patch TD SCH (09:55)
--- NOTE | 2018-11-07 11:26 | PDOC.PN ---
- Subjective Encounter Start Date: 11/07/18 Encounter Start Time: 09:30 Subjective: agitated this am, not oriented -: didn't eat breakfast but took his oral meds with megan later - Objective Resuscitation Status - Order Detail: 11/03/18 22:17 Resuscitation Status Routine Co-Sign Provider: Resuscitation Status: DNAR: NO Resuscitation Discussed with: patient Additional comments: daughter is surrogate decision maker MAR Reviewed: Yes Vital Signs & Weight: Vital Signs (12 hours) Temp Pulse Resp BP Pulse Ox 11/07/18 08:05 91 L 11/07/18 07:25 98.1 F 76 17 109/63 91 L 11/07/18 05:16 97.9 F 79 16 104/65 91 L 11/07/18 00:14 98 F 73 16 111/68 92 L Weight Admit Weight 130 lb 1.164 oz Weight 130 lb 1.164 oz I&O: 11/06/18 11/07/18 11/08/18 06:59 06:59 06:59 Intake Total 50 480 Output Total 400 Balance 50 80 Result Diagrams: 11/04/18 12:54 11/04/18 05:02 Phys Exam - Physical Examination HEENT: PERRLA, sclera anicteric Neck: no JVD, supple Respiratory: no wheezing, no rales Cardiovascular: RRR, no significant murmur Gastrointestinal: soft, non-tender, positive bowel sounds Musculoskeletal: pulses present Neurological: non-focal, moves all 4 limbs -: multiple echymosis Dx/Plan (1) H/O fall Code(s): Z91.81 - HISTORY OF FALLING Status: Acute (2) Rib fractures Code(s): S22.39XA - FRACTURE OF ONE RIB, UNSP SIDE, INIT FOR CLOS FX Status: Acute Qualifiers: Encounter type: subsequent encounter Rib fracture type: multiple ribs Fracture type: closed Laterality: right Comment: right 5-9 (3) MDS (myelodysplastic syndrome) Code(s): D46.9 - MYELODYSPLASTIC SYNDROME, UNSPECIFIED Status: Chronic Comment: with pancytopenia (4) Physical deconditioning Code(s): R53.81 - OTHER MALAISE Status: Acute (5) Encephalopathy acute Code(s): G93.40 - ENCEPHALOPATHY, UNSPECIFIED Status: Acute (6) Osteoporosis Code(s): M81.0 - AGE-RELATED OSTEOPOROSIS W/O CURRENT PATHOLOGICAL FRACTURE Status: Chronic Qualifiers: Osteoporosis type: unspecified (7) Parkinson disease Code(s): G20 - PARKINSON'S DISEASE Status: Chronic - Plan awaiting placement with hospice -: ativan/xanax prn for agitation -: may give geodon 20 im if severely agitated and for pt safety -: d/w daughter -: continue levodopa, amatadine, flomax, proscar, lopressor and citalopram * . Review of Systems - Medications/Allergies Allergies/Adverse Reactions: Allergies Allergy/AdvReac Type Severity Reaction Status Date / Time No Known Allergies Allergy Verified 07/19/13 11:26 Medications: Current Medications Acetaminophen (Tylenol) 650 mg PO Q4H PRN PRN Reason: Headache/Fever/Mild Pain (1-3) Last Admin: 11/05/18 16:22 Dose: 650 mg Hydrocodone Bitart/Acetaminophen ([place] 5/325) 1 tab PO Q4H PRN PRN Reason: Moderate Pain (4-6) Last Admin: 11/07/18 05:05 Dose: 1 tab Hydrocodone Bitart/Acetaminophen ([place] 5/325) 2 tab PO Q4H PRN PRN Reason: Severe Pain (7-10) Alprazolam (Xanax) 0.25 mg PO TIDPRN PRN PRN Reason: Anxiety Last Admin: 11/07/18 05:05 Dose: 0.25 mg Amantadine HCl (Symmetrel) 100 mg PO BID [facility] Last Admin: 11/07/18 08:44 Dose: 100 mg Carbidopa/Levodopa (Sinemet 25-100) 1 tab PO TID [facility] Last Admin: 11/07/18 08:44 Dose: 1 tab Citalopram Hydrobromide (Celexa) 20 mg PO DAILY [facility] Last Admin: 11/07/18 08:43 Dose: 20 mg Docusate Sodium (Colace) 100 mg PO QPM [facility] Last Admin: 11/06/18 21:01 Dose: 100 mg Famotidine (Pepcid) 20 mg PO 0900 [facility] Last Admin: 11/07/18 08:45 Dose: Not Given Ferrous Sulfate (Feosol) 325 mg PO QAM-[facility] Last Admin: 11/07/18 08:43 Dose: 325 mg Finasteride (Proscar) 5 mg PO DAILY [facility] Last Admin: 11/07/18 08:45 Dose: 5 mg Lidocaine (Lidoderm 5% Patch) 2 patch TD DAILY [facility] Last Admin: 11/07/18 09:55 Dose: 2 patch Lorazepam (Ativan) 1 mg IM 929 [facility] Stop: 11/07/18 11:30 Last Admin: 11/07/18 09:55 Dose: 1 mg Metoprolol Tartrate (Lopressor) 25 mg PO BID [facility] Last Admin: 11/07/18 08:46 Dose: Not Given Mirabegron (Myrbetriq Er) 25 mg PO DAILY [facility] Last Admin: 11/07/18 08:46 Dose: 25 mg Miscellaneous Medication (Lidocaine Patch Removal) 0 each TOP 2100 [facility] Last Admin: 11/06/18 21:00 Dose: Not Given Polyethylene Glycol (Miralax) 17 gm PO DAILY PRN PRN Reason: Constipation Potassium Chloride (Klor-Con 10) 10 meq PO MoWeFr@0900 [facility] Last Admin: 11/05/18 10:03 Dose: Not Given Senna/Docusate Sodium (Senokot S) 2 tab PO BID PRN PRN Reason: Constipation Tamsulosin HCl (Flomax) 0.4 mg PO BID [facility] Last Admin: 11/07/18 08:43 Dose: 0.4 mg
[2018-11-07] MEDS: Docusate 100 MG CAP PO SCH (21:38)
[2018-11-07] MEDS: Lidocaine Patch Removal 1 EACH TOP SCH (21:57)
[2018-11-08] MEDS: Amantadine HCl 100 mg Capsule PO SCH ×2 (08:07→20:04)
[2018-11-08] MEDS: Ferrous Sulfate 325 MG TAB PO SCH (08:08)
[2018-11-08] MEDS: Finasteride 5 MG TAB PO SCH (08:08)
[2018-11-08] MEDS: Famotidine 20 MG TAB PO SCH (08:09)
[2018-11-08] MEDS: Tamsulosin HCl 0.4 MG CAP PO SCH (08:09)
[2018-11-08] MEDS: Metoprolol Tartrate 25 MG TAB PO SCH ×2 (08:09→20:05)
[2018-11-08] MEDS: Carbidopa/Levodopa 25-100 mg Tablet PO SCH ×3 (08:10→20:04)
[2018-11-08] MEDS: Potassium Chloride 10 MEQ TAB PO SCH (08:10)
[2018-11-08] MEDS: Citalopram 20 MG TAB PO SCH (08:10)
[2018-11-08] MEDS ORDERED: Clopidogrel Bisulfate 75 MG TAB ONE (08:12)
[2018-11-08] MEDS: Clopidogrel Bisulfate 75 MG TAB ONE ×2 (08:13→10:36)
[2018-11-08] MEDS: Lidocaine 5% Patch TD SCH (10:28)
[2018-11-08] MEDS: HYDROcodone/Acetaminophen 5/325 mg Tablet PO PRN (11:57)
--- NOTE | 2018-11-08 11:57 | PDOC.PN ---
- Subjective Encounter Start Date: 11/08/18 Encounter Start Time: 08:15 Subjective: is calm and responds to verbal stimuli -: ate his breakfast -: son and daughter at bedside - Objective Resuscitation Status - Order Detail: 11/03/18 22:17 Resuscitation Status Routine Co-Sign Provider: Resuscitation Status: DNAR: NO Resuscitation Discussed with: patient Additional comments: daughter is surrogate decision maker MAR Reviewed: Yes Vital Signs & Weight: Vital Signs (12 hours) Temp Pulse Resp BP BP Pulse Ox 11/08/18 08:00 92 L 11/08/18 07:32 98.0 F 77 18 130/72 92 L 11/08/18 04:00 168/78 H Weight Admit Weight 130 lb 1.164 oz Weight 130 lb 1.164 oz I&O: 11/07/18 11/08/18 11/09/18 06:59 06:59 06:59 Intake Total 480 480 Output Total 400 Balance 80 480 Result Diagrams: 11/04/18 12:54 11/04/18 05:02 Phys Exam - Physical Examination HEENT: PERRLA, moist MMs Neck: no JVD, supple Respiratory: no wheezing, no rales Cardiovascular: RRR, no significant murmur Gastrointestinal: soft, non-tender, positive bowel sounds right knee effusion, multiple echymosis Neurological: non-focal, moves all 4 limbs Dx/Plan (1) H/O fall Code(s): Z91.81 - HISTORY OF FALLING Status: Acute (2) Rib fractures Code(s): S22.39XA - FRACTURE OF ONE RIB, UNSP SIDE, INIT FOR CLOS FX Status: Acute Qualifiers: Encounter type: subsequent encounter Rib fracture type: multiple ribs Fracture type: closed Laterality: right Comment: right 5-9 (3) MDS (myelodysplastic syndrome) Code(s): D46.9 - MYELODYSPLASTIC SYNDROME, UNSPECIFIED Status: Chronic Comment: with pancytopenia (4) Physical deconditioning Code(s): R53.81 - OTHER MALAISE Status: Acute (5) Encephalopathy acute Code(s): G93.40 - ENCEPHALOPATHY, UNSPECIFIED Status: Acute (6) Osteoporosis Code(s): M81.0 - AGE-RELATED OSTEOPOROSIS W/O CURRENT PATHOLOGICAL FRACTURE Status: Chronic Qualifiers: Osteoporosis type: unspecified (7) Parkinson disease Code(s): G20 - PARKINSON'S DISEASE Status: Chronic - Plan [facility] either [facility]/hospice care -: await placement -: has off and on confusion/agitation, family helps to calm him down -: ativan/xanax prn -: continue levodopa, amantadine (was recently added), celexa * . small dose of lopressor, oral iron. Pt is DNAR I have d/w son and daughter at bedside. for help with any changes to his parkinson meds in light of current events. Review of Systems - Medications/Allergies Allergies/Adverse Reactions: Allergies Allergy/AdvReac Type Severity Reaction Status Date / Time No Known Allergies Allergy Verified 07/19/13 11:26 Medications: Current Medications Acetaminophen (Tylenol) 650 mg PO Q4H PRN PRN Reason: Headache/Fever/Mild Pain (1-3) Last Admin: 11/05/18 16:22 Dose: 650 mg Hydrocodone Bitart/Acetaminophen ([place] 5/325) 1 tab PO Q4H PRN PRN Reason: Moderate Pain (4-6) Last Admin: 11/07/18 05:05 Dose: 1 tab Hydrocodone Bitart/Acetaminophen ([place] 5/325) 2 tab PO Q4H PRN PRN Reason: Severe Pain (7-10) Alprazolam (Xanax) 0.25 mg PO TIDPRN PRN PRN Reason: Anxiety Last Admin: 11/07/18 15:19 Dose: 0.25 mg Amantadine HCl (Symmetrel) 100 mg PO BID [facility] Last Admin: 11/08/18 08:07 Dose: 100 mg Carbidopa/Levodopa (Sinemet 25-100) 1 tab PO TID [facility] Last Admin: 11/08/18 08:10 Dose: 1 tab Citalopram Hydrobromide (Celexa) 20 mg PO DAILY [facility] Last Admin: 11/08/18 08:10 Dose: 20 mg Docusate Sodium (Colace) 100 mg PO QPM [facility] Last Admin: 11/07/18 21:38 Dose: 100 mg Famotidine (Pepcid) 20 mg PO 0900 [facility] Last Admin: 11/08/18 08:09 Dose: 20 mg Ferrous Sulfate (Feosol) 325 mg PO [facility] Last Admin: 11/08/18 08:08 Dose: 325 mg Finasteride (Proscar) 5 mg PO DAILY [facility] Last Admin: 11/08/18 08:08 Dose: 5 mg Lidocaine (Lidoderm 5% Patch) 2 patch TD DAILY [facility] Last Admin: 11/08/18 10:28 Dose: 2 patch Metoprolol Tartrate (Lopressor) 25 mg PO BID [facility] Last Admin: 11/08/18 08:09 Dose: 25 mg Mirabegron (Myrbetriq Er) 25 mg PO DAILY [facility] Last Admin: 11/08/18 08:08 Dose: 25 mg Miscellaneous Medication (Lidocaine Patch Removal) 0 each TOP 2100 [facility] Last Admin: 11/07/18 21:57 Dose: 1 each Polyethylene Glycol (Miralax) 17 gm PO DAILY PRN PRN Reason: Constipation Potassium Chloride (Klor-Con 10) 10 meq PO MoWeFr@0900 [facility] Last Admin: 11/08/18 08:10 Dose: 10 meq Senna/Docusate Sodium (Senokot S) 2 tab PO BID PRN PRN Reason: Constipation Tamsulosin HCl (Flomax) 0.4 mg PO BID [facility] Last Admin: 11/08/18 08:09 Dose: 0.4 mg
[2018-11-08] MEDS: Lidocaine Patch Removal 1 EACH TOP SCH (20:04)
[2018-11-08] MEDS: Docusate 100 MG CAP PO SCH (20:04)
[2018-11-08] MEDS: Acetaminophen 325 MG TAB PO PRN (20:04)
[2018-11-08] MEDS: ALPRAZolam 0.25 MG TAB PO PRN (20:11)
[2018-11-09] MEDS: Acetaminophen 325 MG TAB PO PRN (04:13)
[2018-11-09] MEDS: ALPRAZolam 0.25 MG TAB PO PRN (04:14)
[2018-11-09] MEDS: Amantadine HCl 100 mg Capsule PO SCH ×2 (07:56→21:04)
[2018-11-09] MEDS: Citalopram 20 MG TAB PO SCH (07:56)
[2018-11-09] MEDS: Carbidopa/Levodopa 25-100 mg Tablet PO SCH ×3 (07:56→21:04)
[2018-11-09] MEDS: Finasteride 5 MG TAB PO SCH (07:56)
[2018-11-09] MEDS: Famotidine 20 MG TAB PO SCH (07:57)
[2018-11-09] MEDS: Ferrous Sulfate 325 MG TAB PO SCH (07:57)
[2018-11-09] MEDS: Tamsulosin HCl 0.4 MG CAP PO SCH (07:57)
[2018-11-09] MEDS: Metoprolol Tartrate 25 MG TAB PO SCH ×2 (07:57→20:59)
[2018-11-09] MEDS: Lidocaine 5% Patch TD SCH (08:00)
[2018-11-09] MEDS: HYDROcodone/Acetaminophen 5/325 mg Tablet PO PRN (10:32)
[2018-11-09 12:51] VITALS: BMI 18.6
[2018-11-09] MEDS: Docusate 100 MG CAP PO SCH (21:03)
[2018-11-09] MEDS: Lidocaine Patch Removal 1 EACH TOP SCH (21:08)
--- NOTE | 2018-11-09 22:00 | PDOC.PN ---
- Subjective Encounter Start Date: 11/09/18 Encounter Start Time: 13:30 No complaints. Very eager to get back to [place]. Bowels have been sluggish. Constipated. - Objective Resuscitation Status - Order Detail: 11/03/18 22:17 Resuscitation Status Routine Co-Sign Provider: Resuscitation Status: DNAR: NO Resuscitation Discussed with: patient Additional comments: daughter is surrogate decision maker Vital Signs & Weight: Vital Signs (12 hours) Temp Pulse Resp BP BP Pulse Ox 11/09/18 20:00 97.4 F L 67 16 92/44 L 89 L 11/09/18 16:52 97.5 F L 64 18 146/73 H 90 L 11/09/18 11:26 97.4 F L 62 18 119/59 L 90 L Weight Admit Weight 130 lb 1.164 oz Weight 119 lb 4.8 oz I&O: 11/08/18 11/09/18 11/10/18 06:59 06:59 06:59 Intake Total 480 960 640 Balance 480 960 640 Result Diagrams: 11/04/18 12:54 11/04/18 05:02 Phys Exam - Physical Examination Constitutional: NAD [place] Respiratory: no wheezing, no rales, no rhonchi, clear to auscultation bilateral Cardiovascular: RRR, no significant murmur, no rub Gastrointestinal: soft, non-tender, no distention, positive bowel sounds Musculoskeletal: no edema Psychiatric: normal affect Skin: normal turgor Dx/Plan (1) Acute respiratory failure with hypoxia Code(s): J96.01 - ACUTE RESPIRATORY FAILURE WITH HYPOXIA Status: Acute (2) Rib fractures Code(s): S22.39XA - FRACTURE OF ONE RIB, UNSP SIDE, INIT FOR CLOS FX Status: Acute Qualifiers: Encounter type: subsequent encounter Rib fracture type: multiple ribs Fracture type: closed Laterality: right Comment: right 5-9 (3) H/O fall Code(s): Z91.81 - HISTORY OF FALLING Status: Acute (4) Physical deconditioning Code(s): R53.81 - OTHER MALAISE Status: Acute (5) MDS (myelodysplastic syndrome) Code(s): D46.9 - MYELODYSPLASTIC SYNDROME, UNSPECIFIED Status: Chronic Comment: with pancytopenia (6) Demand ischemia Code(s): I24.8 - OTHER FORMS OF ACUTE ISCHEMIC HEART DISEASE Status: Acute (7) Parkinson disease Code(s): G20 - PARKINSON'S DISEASE Status: Chronic (8) Encephalopathy acute Code(s): G93.40 - ENCEPHALOPATHY, UNSPECIFIED Status: Acute - Plan * Plan was to have Dr. Nunn see the patient and then transfer to [place]. * Could not happen timely, so patient was discharged. Could not get transportation so delayed. * He will have therapy and then evaluate his situation. May consider palliative approach after that depending on his situation. * Will ensure he has an adequate bowel regimen.
--- NOTE | 2018-11-09 22:30 | PRG ---
DATE OF SERVICE: 11/09/2018 Mr. Duenas has been readmitted after 2 recent falls. He apparently has spinal compression fracture at T10-T11 area. He has some acute lower spinal pain associated with this. He was recently seen in the office and adjustments were made in his medications. He is currently taking Sinemet 25/250 3 times a day and amantadine 100 mg 3 times a day. He had another fall where literally the wind blew him over while he was walking outdoors. He denies any lightheadedness or fainting. He is not reporting any definite freezing episodes. He is not having any dyskinesia at this point. On exam, he is alert and appropriate. His speech is fluent and clear. Cranial nerves are intact. Motor exam shows antigravity strength in all 4 extremities. Rapid alternating movements are slowed bilaterally. No tremor was present. No dysmetria was present. Gait was not tested. Blood pressure of 98/56 was noted while lying in bed. I would determine whether he has some autonomic instability that might need to be addressed. I would continue his current dosing changes as noted above. I would be happy to follow up with him as an outpatient as well. Job ID: [id number]
[2018-11-10] MEDS: Citalopram 20 MG TAB PO SCH (08:18)
[2018-11-10] MEDS: Finasteride 5 MG TAB PO SCH (08:18)
[2018-11-10] MEDS: Famotidine 20 MG TAB PO SCH (08:18)
[2018-11-10] MEDS: Metoprolol Tartrate 25 MG TAB PO SCH (08:18)
[2018-11-10] MEDS: Ferrous Sulfate 325 MG TAB PO SCH (08:19)
[2018-11-10] MEDS: Tamsulosin HCl 0.4 MG CAP PO SCH (08:19)
[2018-11-10] MEDS: Carbidopa/Levodopa 25-100 mg Tablet PO SCH (08:20)
[2018-11-10] MEDS: Amantadine HCl 100 mg Capsule PO SCH (08:21)
--- NOTE | 2018-11-10 10:41 | RAD ---
PORTABLE AP CHEST RADIOGRAPH: History: Productive cough. Comparison: 08-16-18 FINDINGS: There are multiple posterior right sided rib fractures involving the right 5th through 10th ribs. Ple ural and parenchymal changes are seen at the right lung base likely related to right pleural effusion and associated atelectasis. No pneumothorax is evident on this exam. The left lung is clear. The car diac silhouette is magnified by projection. Pulmonary vasculature is within normal limits. Vascular c alcifications are seen in the thoracic aorta. Degenerative changes are noted in the spine. IMPRESSION: Multiple right sided rib fractures with right pleural effusion and associated atelectasis. No pneumot horax is evident on this exam. These findings were present on CT thorax of 11-03-18; although, there i s a slightly greater degree of volume loss and pleural fluid on the right on today's exam. POS: [facility]
[2018-11-10 10:43] LABS: Band 3 % (5-11); Bite Cells SLIGHT = 2-5 cells (100X) (0-1/hpf); Hemoglobin 7.1 g/dL (14.0-18.0); Large Platelets MODERATE; Lymphocytes 11 % (21-51); MDiff Complete? YES; Mean Corpuscular HGB CONC 32.2 g/dL (32.0-36.0); Mean Corpuscular Hemoglobin 31.9 pg (27.0-31.0); Mean Corpuscular Volume 99.2 fL (78.0-98.0); Mean Platelet Volume 13.9 fL (7.4-10.4); Monocytes 20 % (0-10); Neutrophil 65 % (42-75); Platelet Count 66 thou/uL (130-400); Platelet Morphology Comment Appears Decreased; Polychromasia SLIGHT = 2-3 cells (100X) (0-2/hpf); RBC Distribution Width 17.9 % (11.5-14.5); Reactive Lymphocytes 1 % (0-10); Red Blood Cell (RBC) Count 2.23 mill/uL (4.70-6.10); Schistocytes SLIGHT = 2-5 cells (100X) (0-1/hpf); White Blood Cell (WBC) Count 9.7 thou/uL (4.8-10.8)
[2018-11-10 11:18] VITALS: BP 105/56; TEMP 98.2
[2018-11-10] MEDS: Lidocaine 5% Patch TD SCH (11:51)
--- NOTE | 2018-11-11 13:39 | DIS ---
DATE OF ADMISSION: 11/04/2018 DATE OF DISCHARGE: 11/10/2018 DISCHARGE DIAGNOSES: 1. 2. Physical deconditioning, myelodysplastic syndrome, severe Parkinson disease, and encephalopathy. 3. Multiple rib fractures on the right. 4. Acute hypoxic respiratory failure with hypoxia. HISTORY OF PRESENT ILLNESS: This patient is an 88-year-old male with severe Parkinson disease and a history of multiple falls and multiple following injuries who suffered another significant fall and presented to the emergency department. There, he had CT scan of brain, C-spine x-ray, and T-spine and chest, x-rays of the knee, ribs, pelvis, and foot. Ultimately, he was discovered to have rib fractures in the right 9th and 10th ribs. There were some subtle nondisplaced fractures of indeterminate age involving the right 7th through 9th ribs as well as multiple other old fractures of the ribs and the vertebral body fracture at T12. The patient had evidence of some pleural effusion on the right, which is likely traumatic as well. HOSPITAL COURSE: The patient was admitted to the hospital for pain management and mobility. The patient appeared to have some delirium/encephalopathy which was thought to be related to his Parkinson's. He had a repeat CT scan of the head, which failed to show any new pathology. The patient's children were present and were looking toward moving more to a palliative approach. They were seen in consultation by Palliative Care. Over the following days, the patient's mental status significantly improved back to his baseline and Therapy worked with him to increase his mobility. He was ultimately prepared to return to [facility] for more restorative approach and possibly transitioning to hospice at some point. The patient did have some persistent cough and that was productive of some discolored sputum. Repeat chest x-ray failed to show any new evidence of infiltrate. He remained afebrile and his white count remained normal. Also of note, the patient's hemoglobin remained low as did his platelets as part of his myelodysplastic syndrome. On disposition, the patient was ultimately accepted to rehab at [facility] and the initial day for discharge did not come to fruition because of lack of transportation, but was able to go on 11/10/2018. PHYSICAL EXAMINATION: VITAL SIGNS: At the time of discharge, temperature was 98.2, pulse 63, respirations 17, O2 saturation 94% on 2 L, BP 105/56, supine, and 100/55, sitting. The patient could not stand well enough to perform for orthostatics. HEART: Regular rate and rhythm. LUNGS: Revealed some upper airway rhonchi which partially cleared with cough. ABDOMEN: Soft, nontender, and nondistended. EXTREMITIES: Showed no significant edema. DISPOSITION: The patient was discharged to [facility]. DIET/ACTIVITY: He will have activity as tolerated with regular diet. He will have occupational, physical, and speech therapies. DISCHARGE MEDICINES: Will include; 1. Alprazolam p.r.n. 2. Famotidine. 3. Lidoderm patch. 4. Senokot S. 5. Carbidopa/levodopa 25/100 one p.o. t.i.d. 6. Tylenol No. 3 p.r.n. 7. Potassium 10 mEq three times per week. 8. Polyethylene glycol daily p.r.n. 9. Myrbetriq 25 daily. 10. Metoprolol 25 b.i.d. 11. Finasteride 5 mg daily. 12. Ferrous sulfate 325 daily. 13. Docusate sodium 100 mg at bedtime. 14. Citalopram 20 mg daily. 15. Amantadine 100 mg b.i.d. 16. Tamsulosin 0.4 b.i.d. FOLLOWUP: The patient will have further disposition and followup from [facility]. He is encouraged to follow up with Dr. Nunn as well as JESS Aguila and he can return to the hospital should he have any problems prior to that followup. Time spent in discharge activities, including face to face time with patient, was 35 min. Job ID: [id number] [facility]
== END 2018-11-10 13:12 | DRG 551 ==
LOC: ERS 10:46 → T4-B 18:01 → OBSVTOIN 11-04 12:58
PROVIDERS: ADMIT Internal Medicine; ATTEND Internal Medicine
DX: S22.079A Unspecified fracture of T9-T10 vertebra, initial encounter for closed fracture (principal); J96.01 Acute respiratory failure with hypoxia; S22.41XA Multiple fractures of ribs, right side, initial encounter for closed fracture; J90 Pleural effusion, not elsewhere classified; G93.40 Encephalopathy, unspecified; I24.8 Other forms of acute ischemic heart disease; S22.089A Unspecified fracture of T11-T12 vertebra, initial encounter for closed fracture; Z66 Do not resuscitate; W18.30XA Fall on same level, unspecified, initial encounter; G20 Parkinson's disease; R29.6 Repeated falls; D50.9 Iron deficiency anemia, unspecified; I48.91 Unspecified atrial fibrillation; N40.1 Benign prostatic hyperplasia with lower urinary tract symptoms; R33.8 Other retention of urine; D69.6 Thrombocytopenia, unspecified; R31.9 Hematuria, unspecified; R13.12 Dysphagia, oropharyngeal phase; D46.9 Myelodysplastic syndrome, unspecified; M81.0 Age-related osteoporosis without current pathological fracture; Z79.899 Other long term (current) drug therapy
CPT/HCPCS: 36415; 70450; 71045; 71250; 72125; 72128; 72170; 80053; 81003; 81015; 85025; 85610; 85730; 87086; 90471; 90715; J2060; J7050